=== PATIENT | male | born 1945 | race African-American/Black ===

== ENCOUNTER 2016-06-18 06:02 | Day surgery (SDC) | payer OTHER ==
[2016-06-18] MEDS ORDERED: ECOTRIN PO ONE (06:18)
[2016-06-18 06:44] LABS: Basophils % (Auto) 0.4 % (0.0-1.8); Eosinophils % (Auto) 1.8 % (0.0-4.3); Hematocrit 45.4 % (35.5-45.6); Hemoglobin 15.2 gm/dl (11.8-15.2); Mean Corpuscular HGB Conc 34 % (32-34); Mean Corpuscular Hemoglobin 31 pg (28-32); Mean Corpuscular Volume 91 fl (84-94); Platelet Count 188 K/mm3 (140-440); Red Blood Count 4.99 M/mm3 (3.65-5.03); Red Cell Distribution Width 13.3 % (13.2-15.2); White Blood Count 5.7 K/mm3 (4.5-11.0)
[2016-06-18 06:55] LABS: INR 0.99 (0.87-1.13)
[2016-06-18 07:00] LABS: Anion Gap 16 mmol/L; Blood Urea Nitrogen 13 mg/dL (9-20); Calcium 9.3 mg/dL (8.4-10.2); Carbon Dioxide 28 mmol/L (22-30); Chloride 104.2 mmol/L (98-107); Glucose 114 mg/dL (75-100); Potassium 4.6 mmol/L (3.6-5.0); Sodium 144 mmol/L (137-145)
[2016-06-18] MEDS ORDERED: NACL 0.9% 500 ML 500 ML IV SCH (07:00)
[2016-06-18] MEDS ORDERED: CALAN ONE (08:20)
[2016-06-18] MEDS ORDERED: HEPARIN/NS 5000 UNIT/500ML(CATH LAB) 1,000 ML IR ONE (08:20)
[2016-06-18] MEDS ORDERED: HEPARIN 10,000 UNITS/10 ML ONE (08:20)
[2016-06-18] MEDS ORDERED: NITROGLYCERIN SYRINGE 3 ML ONE (08:21)
[2016-06-18] MEDS: SUBLIMAZE ONE ×3 (09:05→09:08)
[2016-06-18] MEDS: XYLOCAINE 2% INFILTRATI ONE ×2 (09:06→09:12)
[2016-06-18] MEDS: VERSED ONE ×2 (09:06→09:08)
--- NOTE | 2016-06-18 10:19 | Short Stay Summary ---
Short Stay Documentation Date of service: 06/18/16 - History H&P: obtained from office - Allergies and Medications Current Medications: Allergies No Known Allergies Allergy (Verified 06/18/16 06:17) Home Medications Medication Instructions Recorded Confirmed Last Taken Type Allopurinol [Allopurinol] 300 mg PO DAILY 06/18/16 06/18/16 06/17/16 History Aspirin [Aspirin BABY CHEW TAB] 81 mg PO DAILY 06/18/16 06/18/16 06/17/16 History AtorvaSTATin [Lipitor] 20 mg PO DAILY 06/18/16 06/18/16 06/17/16 History Colchicine [Colchicine] 0.6 mg PO DAILY 06/18/16 06/18/16 06/17/16 History Lisinopril [Zestril TAB] 10 mg PO QDAY 06/18/16 06/18/16 2 Days Ago History Meloxicam [Meloxicam] 15 mg PO PRN PRN 06/18/16 06/18/16 Unknown History Ranitidine HCl [Zantac 150 MG TAB] 150 mg PO DAILY 06/18/16 06/18/16 06/17/16 History Active Medications Sodium Chloride (Nacl 0.9% 500 Ml) 500 mls @ 50 mls/hr IV DIRECT UMA Stop: 06/18/16 16:59 Last Admin: 06/18/16 06:49 Dose: 50 mls/hr - Physical exam General appearance: no acute distress Integumentary: no rash HEENT: Atraumatic Lungs: Clear to auscultation Breasts: deferred Heart: Regular rate Gastrointestinal: normal Male Genitourinary: deferred Female Genitourinary: deferred Rectal Exam: deferred Extremities: no ischemia Neurological: Normal gait - Brief post op/procedure progress note Date of procedure: 06/18/16 Pre-op diagnosis: Chest Pain Post-op diagnosis: same Procedure: LHC, LV gram Anesthesia: MAC Findings: See report Surgeon: FIDENCIO NUNEZ Estimated blood loss: none Pathology: none Condition: stable - Hospital course Hospital course: Uneventful - Disposition Condition at discharge: Good Disposition: DISCHARGED TO HOME OR SELFCARE Short Stay Discharge Plan Activity: no driving until cleared by PCP (for 2 days) Weight Bearing Status: Non-Weight Bearing (for 2 days) Diet: low fat, low cholesterol, low salt
--- NOTE | 2016-06-18 10:58 | Cardiac Catherization Report ---
LEFT HEART CATHETERIZATION ORDERING PHYSICIAN: Parish Alejandro MD INDICATION FOR PROCEDURE: Persistent chest pain despite a normal stress test. PROCEDURES PERFORMED: 1. Selective left and right coronary angiography. 2. Left ventriculography. DESCRIPTION OF PROCEDURE: After obtaining written consent, the patient was draped using sterile technique. A 2% lidocaine was injected into the right groin. A 5-Vietnamese vascular sheath was inserted into the right common femoral artery. A 5-Vietnamese JL5 catheter was used to selectively engage the left coronary artery. A 5-Vietnamese JR4 catheter was used to selectively engage the right coronary artery. A 5-Vietnamese pigtail catheter was used to perform a left ventriculogram. No complications occurred during the procedure. Hemostasis was achieved at the end of the procedure using a 6-Vietnamese Angio-Seal device. ESTIMATED BLOOD LOSS: Minimal. SPECIMEN REMOVED: None. Access could not be obtained through the right radial artery. FINDINGS: HEMODYNAMICS: Aortic pressure is 113/64, left ventricular systolic pressure is 119 mmHg with the left ventricular end-diastolic pressure of mmHg. There was no significant gradient across the left ventricular outflow tract. CARDIAC STRUCTURES: 1. The left ventricle is normal in size and systolic function. The left ventricular ejection fraction is estimated at 60%. Normal wall motion. 2. The ascending aorta is dilated. The ascending aorta measures 54.53 mm, the sinus of Valsalva diameter measures 47.3 mm, and the sinotubular junction measures 45.36 mm. CORONARY ANATOMY: 1. This is a right dominant circulation. 2. The left main is angiographically normal. 3. The LAD has mild diffuse nonobstructive luminal irregularities with less than 25% luminal stenosis. 4. The left circumflex artery has mild nonobstructive luminal irregularities with less than 25% luminal stenosis. 5. The right coronary artery has nonobstructive mild luminal irregularities with less than 25% luminal stenosis. IMPRESSION: 1. Nonobstructive luminal irregularities with less than 25% luminal stenosis throughout the coronary segments. 2. Normal left ventricular size and systolic function with an ejection fraction estimated at 60%. 3. Normal left ventricular end diastolic pressures. 4. Evidence of a dilated ascending aorta with a sinus of Valsalva diameter measuring 47.3 mm, sinotubular junction measuring 45.36 mm, and the ascending aorta measuring 54.53 mm. RECOMMENDATIONS: 1. Follow up in the office. 2. Further evaluation and accurate calculation of the aortic root diameter and aortic root index is warranted with a more complex imaging. [facility]# [id number] MICHAEL/DECLAN
[2016-06-18 13:00] VITALS: BP 125/87
== END 2016-06-18 13:14 | disposition home or self-care (01) ==
LOC: OPU 06:02
PROVIDERS: ATTEND Internal Medicine Cardiovascular Disease
DX: I25.10 Atherosclerotic heart disease of native coronary artery without angina pectoris (principal); I10 Essential (primary) hypertension; Z82.49 Family history of ischemic heart disease and other diseases of the circulatory system
CPT/HCPCS: 36415; 80048; 85025; 85610; 85730; 93005; 93010; 93458; C1760; C1894; J1644; J2250; J3010; J7040; Q9967